=== PATIENT | female | born 1980 | race Caucasian/White ===

== ENCOUNTER 2023-07-29 08:29 | Emergency (ER) | payer BC ==
[~2023-07-29] VITALS: Ht 157.5 cm; Wt 56.7 kg
[2023-07-29] MEDS ORDERED: FLUORESCEIN SODIUM OPHTH 1 EA STRIP ONE (08:51)
[2023-07-29] MEDS ORDERED: TETRAcaine 5 ML BOTTLE EACHEYE ONE (09:00)
[2023-07-29] MEDS ORDERED: FLUORESCEIN SODIUM OPHTH 1 EA STRIP OP ONE (09:00)
[2023-07-29] MEDS ORDERED: POLY10DR OP (09:12)
[2023-07-29 09:24] VITALS: BP 121/55; TEMP 97.9; O2SAT 98
== END 2023-07-29 09:24 | disposition home or self-care (01) ==
LOC: ER 08:29
DX: H10.33 Unspecified acute conjunctivitis, bilateral (principal); Z60.2 Problems related to living alone